=== PATIENT | male | born 1990 | race Caucasian/White ===

== ENCOUNTER 2023-03-09 13:57 | Outpatient (RCR) | payer SELFPAY ==
[~2023-03-09] VITALS: Ht 175 cm; Wt 65.0 kg
[2023-03-09] MEDS ORDERED: STELARA90 MG/ML SQ (15:09)
[2023-03-09 15:11] VITALS: BP 120/75; PULSE 85; TEMP 98.8
== END 2023-03-09 16:30 | disposition home or self-care (01) ==
LOC: EUO 16:30
DX: Z23 Encounter for immunization (principal)